=== PATIENT | female | born 1955 | race American Indian/Alaskan Native ===

== ENCOUNTER 2016-10-16 10:09 | Outpatient (CLI) | payer BC ==
--- NOTE | 2016-10-17 10:55 | Magnetic Resonance Report ---
MRI ABDOMEN WITHOUT AND WITH CONTRAST : The CLINICAL: Liver masses. A recent CT guided biopsy yielded fatty metamorphosis and no malignancy. COMPARISON :CT liver biopsy 07/30/[address] abdomen and pelvis without and with contrast 07/22/16 TECHNIQUE: Axial T1 in phase and opposed phase, coronal and axial T2 and axial T2 fat sat sequences plus multiphase postcontrast T1 fat sat sequences on a 1.5 Latricia magnet. 12 cc of Multihance was injected intravenously for the contrast portion of the exam and consent was obtained prior to the administration of the contrast. FINDINGS: Mild hepatic enlargement with the right lobe measuring 16.7 cm in length. Normal hepatic contour and overall signal. Multiple right and left hepatic masses. The dominant mass is an irregular mass of the right lobe involving segments V, , VII and VIII and measuring approximately 7.3 x 8.7 x 6.9 cm. It has a large central calcification with hypointense signal. This is corroborated on the noncontrast CT abdomen. This lesion correlates with the biopsied lesion and demonstrates relatively uniform signal dropout on opposed phase imaging. It demonstrates minimal heterogeneous enhancement. There are multiple additional lesions in both right and left lobe which have a similar signal profile and enhancement pattern. Most are oval and relatively smooth. An irregular lesion at the edge of the lateral segment of the left lobe measures 4.1 x 1.7 cm. These lesions are not identified on T2 sequences. A T2 hyperintense mass of segment V measures 5.2 x 3.9 cm and has an enhancement pattern typical of a benign cavernous hemangioma. It demonstrates peripheral enhancement with progressive fill-in on delayed scans. The bile ducts are normal. A gallbladder is not identified. Normal hepatic and portal vasculature. The stomach, duodenum and pancreas are normal. The spleen is normal size. However, several T2 hyperintense splenic lesions are identified. The largest measures 2.3 cm. These lesions demonstrate an enhancement pattern typical of benign hemangiomas. Bilateral benign renal cysts. The largest is in the midportion of the left kidney. It is exophytic and measures 2.8 cm. The renal clipping systems and ureters are nondilated. No ascites. No lymphadenopathy. The imaged portions of small bowel and colon are normal. The bones and soft tissues are unremarkable. IMPRESSION: 1. Mild hepatomegaly and multiple right and left hepatic masses. 2. The dominant mass and most of the masses demonstrate features typical of benign fat containing lesions. The largest has morphology and a central calcified scar typical of benign focal nodular hyperplasia. 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 The rest of the lesions are most likely benign fat related to hepatic steatosis. 3. A 5.2 cm right hepatic benign cavernous hemangioma. 4. 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 5. No signs of hepatic cirrhosis or portal hypertension.
== END 2016-10-16 10:10 | disposition home or self-care (01) ==
LOC: SPVIMAG 10:09
PROVIDERS: ATTEND Internal Medicine Hematology
DX: D18.09 Hemangioma of other sites (principal); K76.89 Other specified diseases of liver; R16.0 Hepatomegaly, not elsewhere classified
CPT/HCPCS: 74183; A9577

== ENCOUNTER 2017-08-01 11:10 | Outpatient (CLI) | payer OTHER ==
--- NOTE | 2017-08-01 16:10 | Mammography Report ---
BONE DEXA:08/01/17 11:10:00 CLINICAL: Postmenopausal. No comparison. TECHNIQUE: Two site bone DEXA performed on an Hologic scanner. FINDINGS: The average BMD of the lumbar spine L1-L4 is 1.056g/cm squared with a T-score of -0.9 and a Z-score of +0.9. The average BMD of the left hip is 0.718g/cm squared with a T-score of -2.0 and a Z-score of -1.1. IMPRESSION: 1. WHO classification: Normal with average fracture risk based on lumbar spine measurements. There is moderate endplate sclerosis from L2-3 through L4-5 and this would be expected to artifactually elevate the spine BMD. However, the L1 body is not affected by endplate sclerosis and the BMD measurement is normal. 2. WHO classification: Osteopenia with decreased fracture risk based on left hip measurements. RECOMMENDATION: Clinical correlation and routine screening. DEFINITIONS: BMD = Bone Mineral Density T-score = BMD related to mean peak bone mass of young adult (mean expressed in Standard Deviation) Z-score = Age matched BMD expressed in SD World Health Organization (WHO) Diagnostic Criteria Normal T-score > -1 SD Osteopenia T-score between -1 and -2.4 SD Osteoporosis T-score -2.5 SD or below NOTE: BMD is not the only risk factor for fracture. One should also consider factors such as the patient's age, risk of falling, previous osteoporotic fracture, family history of osteoporotic fractures, current smoker, and low body weight. Z-scores are not calculated if >80 years of age.
== END 2017-08-01 11:11 | disposition home or self-care (01) ==
LOC: SPVWC 11:10
PROVIDERS: ATTEND Family Medicine
DX: M85.88 Other specified disorders of bone density and structure, other site (principal); Z78.0 Asymptomatic menopausal state
CPT/HCPCS: 77080

== ENCOUNTER 2019-03-08 09:19 | Outpatient (CLI) | payer OTHER ==
--- NOTE | 2019-03-08 10:16 | Ultrasound Report ---
ULTRASOUND RENAL, RIGHT: INDICATION / CLINICAL INFORMATION: RIGHT FLANK PAIN. COMPARISON: None available. FINDINGS: RIGHT KIDNEY: Length = 11.7 cm. [normal > 9 cm] - Parenchymal Thickness = 1.2 cm. [normal > 1.5 cm] - Echogenicity: Normal. - Hydronephrosis: None. - Cyst or mass: No significant abnormality. - Stones: None seen. URINARY BLADDER: No significant abnormality. Prevoid bladder volume measures 74 cc. FREE FLUID: None. ADDITIONAL FINDINGS: The liver appears heterogeneous with masslike areas of increased echogenicity. C onsider further imaging of the liver with [address] with IV contrast if needed. IMPRESSION: Unremarkable right kidney. Heterogeneous appearance of the liver on ultrasound. Signer Name: Quoc Mcknight Jr, MD Signed: 03/08/2019 10:11 AM Workstation Name: [id number]
== END 2019-03-08 09:20 | disposition home or self-care (01) ==
LOC: SPVWC 09:19
PROVIDERS: ATTEND Family Medicine
DX: R10.9 Unspecified abdominal pain (principal); I10 Essential (primary) hypertension; Z90.49 Acquired absence of other specified parts of digestive tract; Z90.710 Acquired absence of both cervix and uterus; M19.90 Unspecified osteoarthritis, unspecified site; Z90.11 Acquired absence of right breast and nipple
CPT/HCPCS: 76775

== ENCOUNTER 2019-07-02 13:31 | Outpatient (CLI) | payer MEDICARE, OTHER | END 2019-07-02 13:32 | disposition home or self-care (01) | LOC: LABHHL 13:31 | PROVIDERS: ATTEND Surgery | DX: N60.02 Solitary cyst of left breast (principal) | CPT/HCPCS: 88112 ==

== ENCOUNTER 2020-02-08 09:54 | Outpatient (CLI) | payer MEDICARE ==
--- NOTE | 2020-02-08 10:59 | Mammography Report ---
DIGITAL SCREENING MAMMOGRAM WITH CAD, 02/08/2020 INDICATION: Routine screening mammography. TECHNIQUE: Digital left 2D mammography was obtained in the craniocaudal and mediolateral oblique pro jections. This examination was interpreted with the benefit of Computer-Aided Detection analysis. COMPARISON: Prior mammograms to 12/13/2019 and 02/02/2019 FINDINGS: Breast Density: The breasts are heterogeneously dense, which may obscure small masses. There is stable post reduction change seen in the left breast, and a stable biopsy clip seen in the 1 2-1 o'clock left breast, anterior depth. There is a 5 mm group of calcifications in the 5-6 o'clock s ubareolar left breast which is new compared with prior examinations. Additional benign-appearing calc ifications in the left breast are unchanged. IMPRESSION: 1. A new small group of calcifications in the left breast require further evaluation with magnificati on views. Follow up recommendation: Special View: Mag Category 0: Incomplete. Needs additional imaging evaluation and/or prior mammograms for comparison. A "normal" or negative report should not discourage follow up or biopsy of a clinically significant f inding. A written summary of these findings will be mailed to the patient. The patient will be entered into a mammography reporting system which will generate a reminder letter for the patient's next appointmen t at the appropriate interval. The [employer] recommends yearly mammograms starting at age 40 and continuing as l danielle as a woman is in good health. Breast MRI is recommended for women with an approximate 20-25% or greater lifetime risk of breast cancer, including women with a strong family history of breast or ova emma cancer or who have been treated for Hodgkin's disease. Signer Name: Lauren Frazier MD Signed: 02/08/2020 10:55 AM Workstation Name: [email or web address]
--- NOTE | 2020-02-08 12:39 | Mammography Report ---
DIGITAL DIAGNOSTIC MAMMOGRAM WITH CAD, -- 02/08/2020 INDICATION: Patient presents as a callback from screening mammogram for further evaluation of left br east calcifications. TECHNIQUE: Digital left mammographic imaging was performed. Magnification views were obtained. This examination was interpreted with the benefit of Computer-aided Detection analysis. COMPARISON: Screening mammogram earlier same day FINDINGS: Breast Density: The breasts are heterogeneously dense, which may obscure small masses. The previously described grouped calcifications in the 6:00 left breast localize to the skin on addit ional lateral views, compatible with benign dermal calcifications. There is stable benign post reduct ion change seen in the left breast. No suspicious mammographic abnormality identified. IMPRESSION: 1. The previously described calcifications localize to the skin on additional views, compatible with benign dermal calcifications. No suspicious mammographic abnormality identified. Follow up recommendation: Routine yearly BI-RADS Category 2: Benign. A "normal" or negative report should not discourage follow up or biopsy of a clinically significant f inding. A written summary of these findings will be mailed to the patient. The patient will be entered into a mammography reporting system which will generate a reminder letter for the patient's next appointmen t at the appropriate interval. According to the [employer], yearly mammograms are recommended starting at age 40 and continuing as long as a woman is in good health. Breast MRI is recommended for women with an gauri roximately 20-25% or greater lifetime risk of breast cancer, including women with a strong family his tory of breast or ovarian cancer and women who have been treated for Hodgkin's disease. Signer Name: Lauren Frazier MD Signed: 02/08/2020 12:35 PM Workstation Name: [email or web address]
== END 2020-02-08 09:55 | disposition home or self-care (01) ==
LOC: SPVWC 09:54
PROVIDERS: ATTEND Surgery
DX: Z12.31 Encounter for screening mammogram for malignant neoplasm of breast (principal); R92.1 Mammographic calcification found on diagnostic imaging of breast
CPT/HCPCS: 77067

== ENCOUNTER 2021-04-04 15:56 | Outpatient (CLI) | payer MEDICARE, OTHER ==
--- NOTE | 2021-04-05 16:17 | Mammography Report ---
DIGITAL SCREENING MAMMOGRAM WITH CAD, 04/04/2021 CLINICAL INFORMATION / INDICATION: Routine screening mammography. SCREENING MAMMO TECHNIQUE: Digital left 2D mammography was obtained in the craniocaudal and mediolateral oblique pro jections. This examination was interpreted with the benefit of Computer-Aided Detection analysis. COMPARISON: 02/08/2020 FINDINGS: Breast Density: The breasts are heterogeneously dense, which may obscure small masses. No dominant mass, suspicious calcifications, or architectural distortion in either breast. There are stable left calcifications. There is a biopsy marking clip on the left. IMPRESSION: No mammographic evidence of malignancy. Follow up recommendation: Routine yearly BI-RADS Category 2: Benign. A "normal" or negative report should not discourage follow up or biopsy of a clinically significant f inding. A written summary of these findings will be mailed to the patient. The patient will be entered into a mammography reporting system which will generate a reminder letter for the patient's next appointmen t at the appropriate interval. The [employer] recommends yearly mammograms starting at age 40 and continuing as l danielle as a woman is in good health. Breast MRI is recommended for women with an approximate 20-25% or greater lifetime risk of breast cancer, including women with a strong family history of breast or ova emma cancer or who have been treated for Hodgkin's disease. Signer Name: Onesimo Cheema MD Signed: 04/05/2021 4:12 PM Workstation Name: [email or web address]
== END 2021-04-04 15:57 | disposition home or self-care (01) ==
LOC: SPVWC 15:56
PROVIDERS: ATTEND Internal Medicine Hematology
DX: Z12.31 Encounter for screening mammogram for malignant neoplasm of breast (principal); D05.11 Intraductal carcinoma in situ of right breast; D13.4 Benign neoplasm of liver